=== PATIENT | female | born 1975 | race American Indian/Alaskan Native ===

== ENCOUNTER 2017-11-17 05:03 | Emergency (ER) | payer SELFPAY ==
[2017-11-17] MEDS ORDERED: ZOFRAN ONE ×2 (06:15→11:18)
[2017-11-17] MEDS ORDERED: TORADOL ONE (06:16)
[2017-11-17] MEDS ORDERED: NACL 0.9% 1000 ML 1,000 ML IV ONE (06:28)
[2017-11-17] MEDS ORDERED: ZOFRAN IV ONE ×2 (06:29→11:11)
[2017-11-17 06:47] LABS: Basophils # (Auto) 0.1 K/mm3 (0.0-0.1); Basophils % (Auto) 0.7 % (0.0-1.8); Hematocrit 41.2 % (30.3-42.9); Hemoglobin 13.7 gm/dl (10.1-14.3); Lymphocytes # (Auto) 1.2 K/mm3 (1.2-5.4); Lymphocytes % (Auto) 7.8 % (13.4-35.0); Mean Corpuscular HGB Conc 33 % (30-34); Mean Corpuscular Hemoglobin 30 pg (28-32); Mean Corpuscular Volume 89 fl (79-97); Monocytes # (Auto) 0.6 K/mm3 (0.0-0.8); Monocytes % (Auto) 3.6 % (0.0-7.3); Platelet Count 321 K/mm3 (140-440); Red Blood Count 4.65 M/mm3 (3.65-5.03); Red Cell Distribution Width 14.6 % (13.2-15.2)
[2017-11-17 07:12] LABS: Alanine Aminotransferase 23 units/L (7-56); Albumin 4.2 g/dL (3.9-5); BUN/Creatinine Ratio 17; Blood Urea Nitrogen 19 mg/dL (7-17); Calcium 9.5 mg/dL (8.4-10.2); Hemolysis Index 22; Lipase 39 units/L (13-60)
[2017-11-17] MEDS ORDERED: DILAUDID IV ONE ×2 (11:10→13:04)
[2017-11-17] MEDS ORDERED: DILAUDID ONE (11:18)
--- NOTE | 2017-11-17 12:26 | Emergency Department Report ---
ED General Adult HPI - General Chief complaint: Abdominal Pain Stated complaint: ABDOMINAL PAIN Time Seen by Provider: 11/17/17 10:52 Source: patient Mode of arrival: Ambulatory Limitations: No Limitations - History of Present Illness Initial comments: Patient presents to the emergency department patient presents to the emergency department with a chief complaint of abdominal pain that started around 10:30 PM last night while going to bed. She describes the pain as being in the right upper part of her abdomen with radiation into her scapula. Patient describes the pain as sharp in nature. Patient endorses eating loaded a potato soup last night. Also complains of some nausea and vomiting as well. Denies diarrhea or chest pain or shortness of breath. -: Sudden Location: abdomen Radiation: back Severity scale (0 -10): 8 Quality: sharp Consistency: constant Improves with: none Worsens with: none Associated Symptoms: denies other symptoms Treatments Prior to Arrival: none - Related Data Home Medications Medication Instructions Recorded Confirmed Last Taken Citalopram [Celexa] 10 mg PO QDAY 11/11/12 04/08/13 04/02/13 Previous Rx's Medication Instructions Recorded Last Taken Type HYDROcodone/APAP 5-325 [[place] 1 each PO Q6HR PRN #20 tablet 04/09/13 Unknown Rx 5/325 mg] amLODIPine [Norvasc] 5 mg PO DAILY #30 tab 04/09/13 Unknown Rx hydroCHLOROthiazide [HCTZ] 25 mg PO QDAY #30 tablet 04/09/13 Unknown Rx HYDROcodone/ACETAMINOPHEN [[place] 1 each PO Q6HR PRN #15 tablet 11/17/17 Unknown Rx 5-325 Tablet] Ondansetron [Zofran Odt] 4 mg PO Q6HR PRN #12 tab.rapdis 11/17/17 Unknown Rx Sucralfate [Carafate] 1 gm PO Q6HR PRN #180 oral.susp 11/17/17 Unknown Rx Allergies Allergy/AdvReac Type Severity Reaction Status Date / Time No Known Allergies Allergy Verified 04/08/13 23:07 ED Review of Systems ROS: Stated complaint: ABDOMINAL PAIN Other details as noted in HPI Comment: All other systems reviewed and negative Constitutional: denies: chills, fever Eyes: denies: eye pain, eye discharge, vision change ENT: denies: ear pain, throat pain Respiratory: denies: cough, shortness of breath, wheezing Cardiovascular: denies: chest pain, palpitations Endocrine: no symptoms reported Gastrointestinal: abdominal pain, nausea, vomiting. denies: diarrhea Genitourinary: denies: urgency, dysuria, discharge Musculoskeletal: denies: back pain, joint swelling, arthralgia Skin: denies: rash, lesions Neurological: denies: headache, weakness, paresthesias Psychiatric: denies: anxiety, depression Hematological/Lymphatic: denies: easy bleeding, easy bruising ED Past Medical Hx - Past Medical History Hx Hypertension: Yes - Surgical History Additional Surgical History: hysterectomy - Social History Smoking Status: Never Smoker Substance Use Type: None - Medications Home Medications: Home Medications Medication Instructions Recorded Confirmed Last Taken Type Citalopram [Celexa] 10 mg PO QDAY 11/11/12 04/08/13 04/02/13 History HYDROcodone/APAP 5-325 [[place] 1 each PO Q6HR PRN #20 tablet 04/09/13 Unknown Rx 5/325 mg] amLODIPine [Norvasc] 5 mg PO DAILY #30 tab 04/09/13 Unknown Rx hydroCHLOROthiazide [HCTZ] 25 mg PO QDAY #30 tablet 04/09/13 Unknown Rx HYDROcodone/ACETAMINOPHEN [[place] 1 each PO Q6HR PRN #15 tablet 11/17/17 Unknown Rx 5-325 Tablet] Ondansetron [Zofran Odt] 4 mg PO Q6HR PRN #12 tab.rapdis 11/17/17 Unknown Rx Sucralfate [Carafate] 1 gm PO Q6HR PRN #180 oral.susp 11/17/17 Unknown Rx ED Physical Exam - General Limitations: No Limitations General appearance: alert, in no apparent distress - Head Head exam: Present: atraumatic, normocephalic - Eye Eye exam: Present: normal appearance, PERRL, EOMI - ENT ENT exam: Present: mucous membranes moist, other (Dry mucous membranes ) - Neck Neck exam: Present: normal inspection - Respiratory Respiratory exam: Present: normal lung sounds bilaterally. Absent: respiratory distress, wheezes, rales, rhonchi - Cardiovascular Cardiovascular Exam: Present: regular rate, normal rhythm. Absent: systolic murmur, diastolic murmur, rubs, gallop - GI/Abdominal GI/Abdominal exam: Present: soft, tenderness, normal bowel sounds, other (TTP RUQ). Absent: distended - Extremities Exam Extremities exam: Present: normal inspection - Back Exam Back exam: Present: normal inspection - Neurological Exam Neurological exam: Present: alert, oriented X3, CN II-XII intact. Absent: motor sensory deficit - Psychiatric Psychiatric exam: Present: normal affect, normal mood - Skin Skin exam: Present: warm, dry, intact, normal color. Absent: rash ED Course Vital Signs 11/17/17 11/17/17 06:07 11:22 Temperature 97.6 F Pulse Rate 68 Respiratory 18 18 Rate Blood Pressure 160/98 O2 Sat by Pulse 100 Oximetry ED Medical Decision Making - Lab Data Result diagrams: 11/17/17 05:30 11/17/17 05:30 - EKG Data Rate: bradycardia (rate of 58) - EKG Data Interpretation: other (sinus bradycardia,Normal intervals, and normal axis, no ST elevation, nonspecific T-wave abnormalities of the anterior leads) - Medical Decision Making discussed results with patient Critical care attestation.: If time is entered above; I have spent that time in minutes in the direct care of this critically ill patient, excluding procedure time. ED Disposition Clinical Impression: Abdominal pain Disposition: DC-01 TO HOME OR SELFCARE Is pt being admited?: No Does the pt Need Aspirin: No Condition: Stable Instructions: Abdominal Pain (ED) Additional Instructions: return if worse Prescriptions: HYDROcodone/ACETAMINOPHEN [[place] 5-325 Tablet] 1 each PO Q6HR PRN #15 tablet PRN Reason: pain Ondansetron [Zofran Odt] 4 mg PO Q6HR PRN #12 tab.rapdis PRN Reason: Nausea Sucralfate [Carafate] 1 gm PO Q6HR PRN #180 oral.susp PRN Reason: pain Referrals: PRIMARY CARE, [Primary Care Provider] - 3-5 Days Time of Disposition: 14:45
--- NOTE | 2017-11-17 14:14 | Ultrasound Report ---
ULTRASOUND ABDOMEN LIMITED: TECHNIQUE: Transabdominal ultrasound with color Doppler interrogation. HISTORY: right upper quadrant abdominal pain. COMPARISON: none. FINDINGS: LIVER: Normal. BILIARY SYSTEM: Normal. PANCREAS: Normal. RIGHT KIDNEY: Normal. PROXIMAL AORTA: Normal. ASCITES: None. IMPRESSION: Unremarkable exam.
[2017-11-17 15:09] VITALS: BP 152/86
== END 2017-11-17 15:10 | disposition home or self-care (01) ==
LOC: ED 05:03
DX: R10.11 Right upper quadrant pain (principal); R11.2 Nausea with vomiting, unspecified; I10 Essential (primary) hypertension; Z90.710 Acquired absence of both cervix and uterus; Z79.899 Other long term (current) drug therapy
CPT/HCPCS: 36415; 76705; 80053; 83690; 84703; 85025; 93005; 93010; 96361; 96374; 96375; 96376; 99284; J1170; J2405; J7030; J1885

== ENCOUNTER 2018-09-09 17:42 | Emergency (ER) | payer SELFPAY ==
[2018-09-09] MEDS ORDERED: CATAPRES PO ONE (19:05)
--- NOTE | 2018-09-09 19:05 | Event Note ---
ED Screening Note ED Screening Note: OFF BP MEDS FOR MONTHS CO HEADACHE RX NONE PSH NONE RECENT PMH HTN HPLD NO CVA NO MN CIG NO ETOH THC MOM A/W DAD CA This initial assessment/diagnostic orders/clinical plan/treatment(s) is/are subject to change based on patients health status, clinical progression and re- assessment by fellow clinical providers in the ED. Further treatment and workup at subsequent clinical providers discretion. Patient/guardian urged not to elope from the ED as their condition may be serious if not clinically assessed and managed. Initial orders include: EKG LAB XRAY WILL NEED BP TREATED
[2018-09-09 19:11] LABS: Basophils # (Auto) 0.1 K/mm3 (0.0-0.1); Eosinophils # (Auto) 0.1 K/mm3 (0.0-0.4); Eosinophils % (Auto) 1.1 % (0.0-4.3); Hematocrit 41.1 % (30.3-42.9); Lymphocytes # (Auto) 2.8 K/mm3 (1.2-5.4); Lymphocytes % (Auto) 21.2 % (13.4-35.0); Mean Corpuscular HGB Conc 34 % (30-34); Mean Corpuscular Volume 88 fl (79-97); Monocytes # (Auto) 0.8 K/mm3 (0.0-0.8); Monocytes % (Auto) 5.8 % (0.0-7.3); Platelet Count 315 K/mm3 (140-440); Red Blood Count 4.66 M/mm3 (3.65-5.03); Red Cell Distribution Width 14.6 % (13.2-15.2)
--- NOTE | 2018-09-09 19:31 | XRay Report ---
CHEST 2 VIEWS 1719 INDICATION / CLINICAL INFORMATION: CHEST PAIN. COMPARISON: None available. FINDINGS: SUPPORT DEVICES: None. HEART / MEDIASTINUM: No significant abnormality. LUNGS / PLEURA: No significant pulmonary or pleural abnormality. No pneumothorax. ADDITIONAL FINDINGS: No significant additional findings. IMPRESSION: No significant acute abnormality Signer Name: Dae Fraser MD Signed: 09/09/2018 7:27 PM Workstation Name: [id number]
[2018-09-09 19:36] LABS: Alanine Aminotransferase 8 units/L (7-56); Albumin 3.8 g/dL (3.9-5); BUN/Creatinine Ratio 13; Blood Urea Nitrogen 13 mg/dL (7-17); Calcium 8.9 mg/dL (8.4-10.2); Hemolysis Index 4
[2018-09-10] MEDS ORDERED: ZESTRIL PO ONE (01:13)
--- NOTE | 2018-09-10 01:29 | Emergency Department Report ---
ED Headache HPI - General Chief Complaint: Dizziness Stated Complaint: HBP / Time Seen by Provider: 09/09/18 18:47 Source: patient Exam Limitations: no limitations - History of Present Illness Initial Comments: 42-year-old female the past medical history of hypertension presents to the Hospital with complaints of headache and hypertension today. She is complaining of 7/10 global headache pressure and dizziness prior to arrival. She took her blood pressure and found it was elevated. She denies blurry vision, nausea, vomiting, neck pain, or focal weakness. She has been noncompliant with her blood pressure medication for 6 months due to lack of health insurance. In triage she received clonidine 0.2 mg with reduction in her blood pressure reports that her headache has improved. Patient denies chest pain or shortness of breath Allergies/Adverse Reactions: Allergies No Known Allergies Allergy (Verified 09/09/18 19:04) Home Medications: Ambulatory Orders Citalopram [Celexa] 10 mg PO QDAY 11/11/12 HYDROcodone/APAP 5-325 [[place] 5/325 mg] 1 each PO Q6HR PRN #20 tablet 04/09/13 amLODIPine [Norvasc] 5 mg PO DAILY #30 tab 04/09/13 hydroCHLOROthiazide [HCTZ] 25 mg PO QDAY #30 tablet 04/09/13 HYDROcodone/ACETAMINOPHEN [[place] 5-325 Tablet] 1 each PO Q6HR PRN #15 tablet 11/17/17 Ondansetron [Zofran Odt] 4 mg PO Q6HR PRN #12 tab.rapdis 11/17/17 Sucralfate [Carafate] 1 gm PO Q6HR PRN #180 oral.susp 11/17/17 Lisinopril [Zestril TAB] 10 mg PO QDAY #30 tablet 09/10/18 amLODIPine [Norvasc] 10 mg PO DAILY #30 tab 09/10/18 ED Review of Systems ROS: Stated complaint: HBP 202/113 Other details as noted in HPI Comment: All other systems reviewed and negative ED Past Medical Hx - Past Medical History Previous Medical History?: Yes Hx Hypertension: Yes - Surgical History Past Surgical History?: Yes Additional Surgical History: hysterectomy - Social History Smoking Status: Current Every Day Smoker Substance Use Type: None - Medications Home Medications: Home Medications Medication Instructions Recorded Confirmed Last Taken Type Citalopram [Celexa] 10 mg PO QDAY 11/11/12 04/08/13 04/02/13 History HYDROcodone/APAP 5-325 [[place] 1 each PO Q6HR PRN #20 tablet 04/09/13 Unknown Rx 5/325 mg] amLODIPine [Norvasc] 5 mg PO DAILY #30 tab 04/09/13 Unknown Rx hydroCHLOROthiazide [HCTZ] 25 mg PO QDAY #30 tablet 04/09/13 Unknown Rx HYDROcodone/ACETAMINOPHEN [[place] 1 each PO Q6HR PRN #15 tablet 11/17/17 Unknown Rx 5-325 Tablet] Ondansetron [Zofran Odt] 4 mg PO Q6HR PRN #12 tab.rapdis 11/17/17 Unknown Rx Sucralfate [Carafate] 1 gm PO Q6HR PRN #180 oral.susp 11/17/17 Unknown Rx Lisinopril [Zestril TAB] 10 mg PO QDAY #30 tablet 09/10/18 Unknown Rx amLODIPine [Norvasc] 10 mg PO DAILY #30 tab 09/10/18 Unknown Rx ED Physical Exam - General Limitations: No Limitations - Other Other exam information: General: No limitations, patient is alert in no acute distress Head exam: Atraumatic, normocephalic Eyes exam: Normal appearance, pupils equal reactive to light, extraocular movements intact ENT: Moist mucous membrane, normal oropharynx Neck exam: Normal inspection, full range of motion, no meningismus nontender Respiratory exam: Clear to auscultation bilateral, no wheezes, rales, crackles Cardiovascular: Normal rate and rhythm, normal heart sounds Abdomen: Soft, nondistended, and nontender, with normal bowel sounds, no rebound, or guarding Extremity: Full range of motion normal inspection no deformity Back: Normal Inspection, full range of motion, no tenderness Neurologic: Alert, oriented x3, cranial nerves intact, no motor or sensory deficit Psychiatric: Tearful, states she was stressed about her wait time in how she acted out in triage Skin: Warm, dry, intact ED Course Vital Signs 09/09/18 09/09/18 09/10/18 19:04 23:48 00:00 Temperature 97.9 F Pulse Rate 86 66 Respiratory 16 19 Rate Blood Pressure 205/117 203/120 190/116 [Right] O2 Sat by Pulse 100 Oximetry 09/10/18 09/10/18 09/10/18 00:28 01:00 02:29 Temperature Pulse Rate 66 62 Respiratory 14 Rate Blood Pressure 176/109 171/103 154/91 [Right] O2 Sat by Pulse 97 Oximetry ED Medical Decision Making - Lab Data Result diagrams: 09/09/18 18:52 09/09/18 18:52 Lab Results 09/09/18 09/09/18 Range/Units 18:52 18:52 WBC 13.2 H (4.5-11.0) K/mm3 RBC 4.66 (3.65-5.03) M/mm3 Hgb 14.0 (10.1-14.3) gm/dl Hct 41.1 (30.3-42.9) % MCV 88 (79-97) fl MCH 30 (28-32) pg MCHC 34 (30-34) % RDW 14.6 (13.2-15.2) % Plt Count 315 (140-440) K/mm3 Lymph % (Auto) 21.2 (13.4-35.0) % [place] % (Auto) 5.8 (0.0-7.3) % Eos % (Auto) 1.1 (0.0-4.3) % Baso % (Auto) 1.0 (0.0-1.8) % Lymph # 2.8 (1.2-5.4) K/mm3 [place] # 0.8 (0.0-0.8) K/mm3 Eos # 0.1 (0.0-0.4) K/mm3 Baso # 0.1 (0.0-0.1) K/mm3 Seg Neutrophils % 70.9 H (40.0-70.0) % Seg Neutrophils # 9.4 H (1.8-7.7) K/mm3 Sodium 140 (137-145) mmol/L Potassium 3.5 L (3.6-5.0) mmol/L Chloride 104.8 (98-107) mmol/L Carbon Dioxide 24 (22-30) mmol/L Anion Gap 15 mmol/L BUN 13 (7-17) mg/dL Creatinine 1.0 (0.7-1.2) mg/dL Estimated GFR > 60 ml/min BUN/Creatinine Ratio 13 % Glucose 111 H (65-100) mg/dL Calcium 8.9 (8.4-10.2) mg/dL Total Bilirubin 0.40 (0.1-1.2) mg/dL AST 10 (5-40) units/L ALT 8 (7-56) units/L Alkaline Phosphatase 120 (35-129) units/L Troponin T < 0.010 (0.00-0.029) ng/mL Total Protein 7.2 (6.3-8.2) g/dL Albumin 3.8 L (3.9-5) g/dL Albumin/Globulin Ratio 1.1 % - Radiology Data Radiology results: report reviewed CHEST 2 VIEWS 1719 INDICATION / CLINICAL INFORMATION: CHEST PAIN. COMPARISON: None available. FINDINGS: SUPPORT DEVICES: None. HEART / MEDIASTINUM: No significant abnormality. LUNGS / PLEURA: No significant pulmonary or pleural abnormality. No pneumothorax. ADDITIONAL FINDINGS: No significant additional findings. IMPRESSION: No significant acute abnormality - Medical Decision Making Headache improving with blood pressure reduction. Patient has no neurologic deficits. Patient will be discharged home with her last known BP medication. Outpatient follow-up advised - Differential Diagnosis hypertensive emergency, hypertensive urgency, noncompliant Critical Care Time: No Critical care attestation.: If time is entered above; I have spent that time in minutes in the direct care of this critically ill patient, excluding procedure time. ED Disposition Clinical Impression: Uncontrolled hypertension, Noncompliance with medications, Headache Disposition: DC-01 TO HOME OR SELFCARE Is pt being admited?: No Does the pt Need Aspirin: No Condition: Stable Instructions: Acute Headache (ED), Hypertension (ED) Additional Instructions: Take the medication as prescribed. Follow up with your doctor or the clinic/doctor provided. Return if symptoms worsen as indicated by your discharge instructions Prescriptions: amLODIPine [Norvasc] 10 mg PO DAILY #30 tab Lisinopril [Zestril TAB] 10 mg PO QDAY #30 tablet Referrals: HARIKA NAPOLES MD [Primary Care Provider] - 3-5 Days Time of Disposition: 02:31
[2018-09-10] MEDS ORDERED: CATAPRES PO ONE (01:36)
[2018-09-10] MEDS ORDERED: NORVASC PO ONE (01:39)
[2018-09-10 02:30] VITALS: BP 154/91
== END 2018-09-10 04:05 | disposition home or self-care (01) ==
LOC: ED 17:42
DX: I16.0 Hypertensive urgency (principal); I10 Essential (primary) hypertension; F17.200 Nicotine dependence, unspecified, uncomplicated; Z79.899 Other long term (current) drug therapy; Z90.710 Acquired absence of both cervix and uterus
CPT/HCPCS: 36415; 71046; 80053; 84484; 85025; 93005; 93010; 99284